=== PATIENT | female | born 1955 | race Caucasian/White ===

== ENCOUNTER → 2018-05-12 | Day surgery (SDC) | payer MEDICARE, OTHER ==
[~2018-05-12] MED LIST: ASPIRIN81 MG; BETA CAROT10000 UNIT PO; BIOTENE ORALBAL45 ML; CALCET TABLET1 EACH; CRANBERRY EXTRAC1 GM PO; FENTANYL CITRATE/PF 100MCG/2 ML INJ ONE; FLAXSEED OIL1000 MG PO; GLIPIZIDE5 MG PO; GLYXAMBI; IRON PO; LOSARTAN POTAS100 MG PO; LOVASTATIN20 MG PO; MAGNESIUM OXID400 MG PO; MIDAZOLAM HCL 2 MG/2 ML VIAL ONE; NEXIUM40 MG PO; OR PHACO EYE KIT ONE; PREOP PHACO EYE KIT ONE; UBIDECARENONE PO; VITAMIN B-121000 MCG PO
[2018-05-12 14:20] VITALS: BP 142/68
== END | disposition home or self-care (01) ==
LOC: OR 11:12
PROVIDERS: ATTEND Ophthalmology
DX: H25.12 Age-related nuclear cataract, left eye (principal); I10 Essential (primary) hypertension; E11.9 Type 2 diabetes mellitus without complications; K44.9 Diaphragmatic hernia without obstruction or gangrene; F17.210 Nicotine dependence, cigarettes, uncomplicated; Z88.6 Allergy status to analgesic agent; Z88.0 Allergy status to penicillin; Z79.82 Long term (current) use of aspirin; Z79.84 Long term (current) use of oral hypoglycemic drugs
CPT/HCPCS: 36415; 66984; 82948; J2250; V2632